=== PATIENT | female | born 1980 | race Hispanic/Latino ===

== ENCOUNTER 2017-09-17 07:50 | Observation (INO) | payer OTHER ==
[2017-09-11 11:11] LABS: Basophils # (Auto) 0.1 K/mm3 (0.0-0.1); Basophils % (Auto) 1.4 % (0.0-1.8); Eosinophils # (Auto) 0.2 K/mm3 (0.0-0.4); Eosinophils % (Auto) 2.6 % (0.0-4.3); Hematocrit 36.8 % (30.3-42.9); Hemoglobin 12.3 gm/dl (10.1-14.3); Lymphocytes # (Auto) 1.8 K/mm3 (1.2-5.4); Lymphocytes % (Auto) 22.5 % (13.4-35.0); Mean Corpuscular HGB Conc 34 % (30-34); Mean Corpuscular Hemoglobin 27 pg (28-32); Mean Corpuscular Volume 80 fl (79-97); Monocytes # (Auto) 0.7 K/mm3 (0.0-0.8); Monocytes % (Auto) 8.8 % (0.0-7.3); Platelet Count 323 K/mm3 (140-440); Red Blood Count 4.59 M/mm3 (3.65-5.03); Red Cell Distribution Width 16.4 % (13.2-15.2)
--- NOTE | 2017-09-11 11:17 | Anesthesia Consultation ---
Anesthesia Consult and Med Hx Date of service: 09/11/17 - Airway Anesthetic Teeth Evaluation: Good, Bridges (upper) ROM Head & Neck: Adequate Mental/Hyoid Distance: Adequate Mallampati Class: Class II Intubation Access Assessment: Probably Good - Pulmonary Exam CTA: Yes - Cardiac Exam Cardiac Exam: RRR - Pre-Operative Health Status ASA Pre-Surgery Classification: ASA2 Proposed Anesthetic Plan: General - Pulmonary Hx Smoking: Yes (Former) - Central Nervous System Hx Back Pain: Yes Hx Psychiatric Problems: No - Hematic Hx Anemia: No - Other Systems Hx Alcohol Use: Yes (occas) Hx Cancer: No - Additional Comments Anesthesia Medical History Comments: pelvic pain, heavy bleeding
--- NOTE | 2017-09-15 11:47 | History and Physical Report ---
History of Present Illness Date of examination: 09/15/17 Date of admission: 09/17/17 Chief complaint: here for surgery History of present illness: History of Present Illness: pt presents for pre-op...................igarcia CC: cramping. History of Present Illness: pt presents c/o cramping off and on, pain with intercourse.....samantha Pt was doing well w/o severe pain until recently. She states the pain did not fully subside but has gotten worse as it was previosly. Pt does have a post fibroid that make having sex painful which her main cocern. She does continue to have painful meses and heavy periods with passing clots. I d/w treatmnt options. she has tried hormonal threapy in the past and this would regulate menses but still would not eliminate painful coitus. Pt desires to have [facility] BS. All risk/benefits/alternatives were d/w pt and questions were addressed and answered. Will con't nsaids for now for pain. Vital Signs: Patient Profile: 36 Years Old Female LMP: 08/11/2017 Height: 62 inches (157.48 cm) Weight: 171 pounds (77.73 kg) BMI: 31.27 BSA: 1.79 BP sittin / 76 (left arm) Vitals Entered By: Nelsy Cheek (September 05, 2017 3:58 PM) Menstrual History: LMP (date): 08/11/2017 Past History : 4 Term Births: 3 Living Children: 3 Para: 3 Spont. 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 of genital herpes: no Hx of STD: HPV Active Medications (reviewed today): NAPROSYN 500 MG ORAL TABLET (NAPROXEN) 1 tab po BID prn pain NEXIUM () TYLENOL () NAPROXEN (PRN PAIN) () Current Allergies (reviewed today): CODEINE (Critical) Past Medical History: Reviewed history from 12/20/2016 and no changes required: Negative Past Medical History Past Surgical History: Reviewed history from 12/20/2016 and no changes required: positive Cholecystectomy [[facility]] Risk Factors: Smoked Tobacco Use: Former smoker Smokeless Tobacco Use: Never Passive smoke exposure: no Drug use: no HIV high-risk behavior: no Alcohol use: yes Exercise: yes Seatbelt use: 100 % Review of Systems General Denies fever, chills, sweats, anorexia, fatigue, weakness, malaise, weight loss and sleep disorder. Denies nausea, vomiting, headache, swelling of legs, abdominal pain, vaginal discharge, vaginal bleeding and contractions. Complains of menorrhagia, pelvic pain, painful periods and painful sex. Denies vaginal discharge, incontinence, dysuria, hematuria, urinary frequency, amenorrhea, abnormal vaginal bleeding, genital sores, decreased libido, urinary urgency, hot flashes, vaginal dryness, vaginal itching and vaginal odor. CV Denies chest pains, palpitations, syncope, dyspnea on exertion, orthopnea, PND and peripheral edema. Resp Denies cough, dyspnea at rest, excessive sputum, hemoptysis, wheezing and pleurisy. GI Denies nausea, vomiting, diarrhea, constipation, change in bowel habits, abdominal pain, melena, hematochezia, jaundice, gas/bloating, indigestion/ heartburn, dysphagia and odynophagia. Endo Denies cold intolerance, heat intolerance, polydipsia, polyphagia, polyuria and unusual weight change. Breast Denies left breast lump, right breast lump, nipple discharge, bloody discharge from nipple, breast pain, abnormal mammogram and breast enlargement. MS Denies back pain, joint pain, joint swelling, muscle cramps, muscle weakness, stiffness, arthritis, sciatica, restless legs, leg pain at night and leg pain with exertion. Derm Denies rash, itching, dryness and suspicious lesions. Neuro Denies paralysis, paresthesias, headache, seizures, tremors, vertigo, transient blindness, frequent falls, frequent headaches and difficulty walking. Psych Denies depression, anxiety, irritability and mood swings. Eyes Denies blurring, diplopia, irritation, discharge, vision loss, eye pain and photophobia. ENT Denies earache, ear discharge, tinnitus, decreased hearing, nasal congestion, nosebleeds, sore throat and hoarseness. Allergy Denies urticaria, allergic rash, hay fever and recurrent infections. Heme Denies abnormal bruising, bleeding and enlarged lymph nodes. 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 History: abnormal PAP smear Family/Genetic History: none Social history: no significant social history, - Obstetrical History : 4 Para: 3 Hx # Term Pregnancies: 3 Spontaneous Abortions: 1 Number of Living Children: 3 Medications and Allergies Allergies Allergy/AdvReac Type Severity Reaction Status Date / Time codeine Allergy Anaphylaxis Verified 09/10/17 09:50 Home Medications Medication Instructions Recorded Confirmed Last Taken Type Esomeprazole Magnesium [Nexium] 40 mg PO DAILY 09/10/17 09/10/17 Unknown History Naproxen [Naprosyn] 500 mg PO DAILY 09/10/17 09/10/17 Unknown History - Vital Signs Vital signs: Vital Signs Temp Pulse Resp BP 98.8 F 60 16 120/84 09/11/17 10:30 09/11/17 10:30 09/11/17 10:30 09/11/17 10:30 Temp Pulse Resp BP Pulse Ox 98.8 F 60 16 120/84 09/11/17 10:30 09/11/17 10:30 09/11/17 10:30 09/11/17 10:30 - Physical Exam Breasts: Positive: deferred Cardiovascular: Normal S1, Normal S2 Lungs: Positive: Clear to auscultation, Normal air movement Abdomen: Positive: normal appearance, soft. Negative: distention, tenderness, guarding Genitourinary (Female): Positive: normal external genitalia, normal perenium, other (previous exam) Vulva: both: normal Vagina: Positive: normal moisture. Negative: discharge Cervix: Positive: other (some tenderness on exam previously). Negative: lesion Uterus: Positive: normal size, other (irregular contour. Post fibroid was palpated). Negative: normal contour Extremities: Positive: normal. Negative: tenderness, edema Deep Tendon Reflex Grade: Normal +2 Results Result Diagrams: 09/11/17 10:30 All other labs normal. Assessment and Plan - Patient Problems (1) Menorrhagia with regular cycle Status: Acute Plan to address problem: pt has tried medical therapy initially with some improvement but with sx returning. She desires definitive treatment in the for of a hyst. All risk, benefits, and alternatives were d/w pt and questions were addressed and answered. Pt given ample time to ask questions and all of which were addressed. Consents signed and placed on chart. -to OR for LAVH with BS (2) Dysmenorrhea Status: Acute Plan to address problem: pt has tried medical therapy initially with some improvement but with sx returning. She desires definitive treatment in the for of a hyst. All risk, benefits, and alternatives were d/w pt and questions were addressed and answered. Pt given ample time to ask questions and all of which were addressed. Consents signed and placed on chart. -to OR for LAVH with BS (3) Painful coitus, female Status: Acute Plan to address problem: -post fibroid continues to make sex painful. -to OR for LAVH with BS (4) Uterine fibroid Status: Acute
[~2017-09-17 07:50] MED LIST: ANCEF/STERILE WATER 2 GM/20 ML 2 GM/20 ML SYRINGE IV SCH
[2017-09-17] MEDS: LACTATED RINGERS 1,000 ML IV SCH ×2 (08:50→20:17)
[2017-09-17] MEDS ORDERED: VERSED IV PRN (09:30)
[2017-09-17] MEDS ORDERED: NEURONTIN PO NR (09:30)
[2017-09-17] MEDS ORDERED: DILAUDID IV SCH (10:00)
[2017-09-17] MEDS ORDERED: PEPCID PO NR (10:00)
--- NOTE | 2017-09-17 10:37 | Event Note ---
Date: 09/17/17 Pt states that she has taken lortab in the past w/o interactions. Spoke with inpt pharm that recommends norco for pain control at this time. Will closely monitor for any interactions.
[2017-09-17] MEDS ORDERED: DECADRON ONE (11:29)
[2017-09-17] MEDS ORDERED: ZEMURON IV ONE (11:29)
[2017-09-17] MEDS ORDERED: XYLOCAINE MPF 2% ONE (11:29)
[2017-09-17] MEDS ORDERED: TORADOL ONE ×2 (11:29→13:19)
[2017-09-17] MEDS ORDERED: SUBLIMAZE ONE (11:29)
[2017-09-17] MEDS ORDERED: DIPRIVAN 10 MG/ML IV ONE (11:29)
[2017-09-17] MEDS ORDERED: ZOFRAN ONE (11:29)
[2017-09-17] MEDS ORDERED: MARCAINE 0.5% 30 ML INFILTRATI ONE (11:30)
[2017-09-17] MEDS ORDERED: METHYLENE BLUE ONE (11:36)
[2017-09-17] MEDS ORDERED: Vasostrict ONE (11:37)
[2017-09-17] MEDS ORDERED: VERSED ONE (11:41)
[2017-09-17] MEDS ORDERED: ROBINUL ONE ×3 (12:23→13:19)
[2017-09-17] MEDS ORDERED: NACL 0.9% 100 ML ONE (12:58)
[2017-09-17] MEDS ORDERED: BLOXIVERZ ONE (13:19)
[2017-09-17] MEDS ORDERED: MARCAINE 0.5% INFILTRATI ONE (13:37)
[2017-09-17] MEDS ORDERED: NACL 0.9% IR ONE (13:37)
[2017-09-17] MEDS ORDERED: Vasostrict IV ONE (13:39)
[2017-09-17] MEDS ORDERED: ZOFRAN IV PRN (14:27)
[2017-09-17] MEDS ORDERED: TYLENOL PO PRN (14:27)
--- NOTE | 2017-09-17 14:27 | Operative Report ---
Operative Report Operative Report: Date of procedure: 09/17/2017 Pre-operative diagnosis: Menorrhagia Dyspareunia Uterine fibroid Post-operative diagnosis: Same Procedure name(s): Laparoscopic assisted vaginal hysterectomy Bilateral salpingectomy Surgeon: Chanel Griffiths MD Project Developer: Dr. Idalia Ramirez Anesthesia: Gen. endotracheal anesthesia EBL: 100 mL Urine output: 200 mL of clear urine out at the end of procedure Fluids: 1300 mL Findings: Grossly normal fallopian tubes and ovaries bilaterally Enlarged globular uterus Posterior uterine fibroid Indications: Patient with long history of menorrhagia and dyspareunia. Patient diagnosed with a posterior fundal uterine fibroid that caused of complaint with sexual intercourse. Patient did have to further relieve using hormonal treatment for the menorrhagia. However, the symptoms returned after a few months. Patient desired definitive therapy in the form of hysterectomy. All risks benefits and alternatives were discussed with the patient. Risks benefits and alternatives of removing fallopian tubes bilaterally were also discussed with the patient. Patient desired removal of the fallopian tubes bilaterally. Procedure: Patient was taken to the operating room where she was placed under general endotracheal anesthesia. She was then prepped and draped in sterile fashion. It was at this point that the large Winkapp care uterine manipulator was placed inside of the uterus after the uterus was sounded to approximately 10 cm. Fernandez catheter was also placed at this time. Attention was then turned to the umbilicus in which a supraumbilical incision was made. Under direct visualization the 5 mm trocar was placed inside the peritoneum the peritoneum was then insufflated. As at this point that the laparoscopic portion of the procedure was performed. 2 lateral 5 mm ports were also placed under direct visualization. Using the tripolar instrument the upper pedicles were cauterized and transected to the including round ligament with excellent hemostasis noted bilaterally. Attention was then turned vaginally. A weighted speculum was placed into the vagina and the cervix was grasped with a single-tooth tenaculum 2. The cervix was then injected circumferentially with Pitressin. The cervix was then circumferentially incised with the scalpel and the bladder dissected off of the pubovesical cervical fascia anteriorly with a sponge stick and Metzenbaum scissors. The same procedure was performed posteriorly and the posterior cul-de-sac was entered into sharply without difficulty. At this point a Meliza Clamp was placed over the uterosacral ligaments on either side. These were then transected and suture ligated with 0 Vicryl. Hemostasis was assured. The cardinal ligaments were then clamped on both sides transected and suture ligated in similar fashion. The uterine arteries were then serially clamped with Meliza clamps transected and suture ligated on both sides. Excellent hemostasis was visualized. After it was clear that the uterus had been completely from all pedicles the uterus was removed vaginally intact with cervix intact. The vaginal cuff angles were closed with figure of 8 stitches of 0 Vicryl on both sides. The peritoneum was incorporated in the stitching of the vaginal cuff. A series of interrupted figure of 8 sutures using 0 Vicryl were used to close the entire vaginal cuff. Excellent hemostasis was noted. The vagina was then irrigated copiously. Attention was then turned laparoscopically at which time Interceed was placed along the vaginal cuff and both ovaries bilaterally laparoscopically Again all pedicles were noted to be hemostatic. The ureters were identified bilaterally with peristalsis noted bilaterally. All instruments were then removed from the abdomen and the vagina. All gas was released from the abdomen. The abdominal incisions were closed using 4-0 Monocryl. All of the abdominal incisions were injected with Marcaine without epi. Patient tolerated the procedure well sponge lap and needle counts were all correct 3 the patient was taken to the recovery room awake and in stable condition.
[2017-09-17] MEDS ORDERED: DILAUDID ONE (14:59)
[2017-09-17] MEDS: DILAUDID IV PRN ×3 (15:09→16:29)
[2017-09-17] MEDS: TORADOL IV SCH ×2 (15:09→21:50)
[2017-09-17] MEDS: NORCO 5/325 PO PRN ×2 (18:49→23:10)
[2017-09-17] MEDS: ANCEF/NS 1 GM/50 ML 1 GM/50 ML BAG IV SCH (20:18)
[2017-09-18] MEDS: TORADOL IV SCH ×2 (03:15→09:46)
[2017-09-18] MEDS: LACTATED RINGERS 1,000 ML IV SCH (03:19)
[2017-09-18] MEDS: ANCEF/NS 1 GM/50 ML 1 GM/50 ML BAG IV SCH (03:24)
[2017-09-18] MEDS: NORCO 5/325 PO PRN ×2 (05:11→12:34)
[2017-09-18 08:35] LABS: Hematocrit 34.7 % (30.3-42.9); Hemoglobin 11.5 gm/dl (10.1-14.3)
--- NOTE | 2017-09-18 09:59 | Progress Note ---
Assessment and Plan - Patient Problems (1) Menorrhagia with regular cycle Current Visit: No Status: Acute (2) Dysmenorrhea Current Visit: No Status: Acute (3) Painful coitus, female Current Visit: No Status: Acute (4) Uterine fibroid Current Visit: No Status: Acute (5) Status post laparoscopic assisted vaginal hysterectomy (LAVH) Current Visit: Yes Status: Acute Plan to address problem: -con't post op care -d/c home this pm if remains AFVSS and tolerates regular Subjective - Subjective Date of service: 09/18/17 Principal diagnosis: POD #1s/p LAVH WITH BS Interval history: Pt doing well tolerating a clear diet with the regular diet at bedside this am. Pt states pain is well controlled this am. Pt still has not had a spontaneous void as cath just removed. Patient reports: appetite normal, voiding normally, pain well controlled, ambulating normally, no dizzy ambulation Objective - Vital Signs Latest vital signs: Vital Signs Temp Pulse Resp BP BP Pulse Ox 09/18/17 05:11 20 09/18/17 04:10 98.6 F 88 18 111/66 98 09/18/17 03:15 18 09/18/17 00:00 98.0 F 93 H 18 112/69 96 09/17/17 23:10 18 09/17/17 21:50 20 09/17/17 20:05 99.1 F 90 18 133/86 98 09/17/17 16:00 97.6 F 84 16 122/77 97 09/17/17 15:30 65 12 111/66 98 09/17/17 15:15 65 13 104/57 93 09/17/17 15:00 65 16 106/58 94 09/17/17 14:45 73 16 100/47 95 09/17/17 14:40 75 15 106/53 95 09/17/17 14:35 74 15 103/57 100 09/17/17 14:28 97.7 F 73 20 106/56 100 09/17/17 09:55 16 Intake and Output 09/17/17 09/18/17 09/18/17 22:59 06:59 14:59 Intake Total 1175 1359.167 Output Total 1700 Balance 1175 -340.833 Intake: IV 1175 879.167 ANCEF/NS 1 GM/50 ML 1 gm 50 In 50 ml @ 100 mls/hr IV Q8H KIERRA Rx#:[id number] Lactated Ringers 1,000 ml 1000 879.167 @ 125 mls/hr IV DIRECT KIERRA Rx#:[id number] Right Hand 125 Oral 480 Output: Urine 1700 Void 1700 Other: Total, Intake Amount 240 Total, Output Amount 900 - Exam Cardiovascular: Present: Normal S1, Normal S2 Lungs: Present: Clear to auscultation, Normal air movement Abdomen: Present: normal appearance, soft. Absent: distention, tenderness, guarding Extremities: Absent: tenderness, edema Deep Tendon Reflex Grade: Normal +2 Incision: Present: normal, dry, intact
--- NOTE | 2017-09-18 10:02 | Discharge Summary ---
Providers - Providers Date of Admission: 09/17/17 14:27 Date of discharge: 09/18/17 Attending physician: CHRIS FORDE Primary care physician: SHIP WASHER Hospitalization Reason for admission: other (LAVH WITH BS) Procedure: other (LAVH WITH BS) Procedure details: See operative report Incision: normal, dry, intact Hospital course: Patient was admitted to the hospital for laparoscopic-assisted vaginal hysterectomy with bilateral salpingectomy. Patient's postoperative course was not complicated. Patient received routine post operative care and was discharged home on postoperative day #1 when she was able to ambulate without assistance, urinates spontaneously, and tolerating regular diet. Condition at discharge: Good Disposition: DC-01 TO HOME OR SELFCARE - Discharge Diagnoses (1) Menorrhagia with regular cycle Status: Acute (2) Dysmenorrhea Status: Acute (3) Painful coitus, female Status: Acute (4) Uterine fibroid Status: Acute (5) Status post laparoscopic assisted vaginal hysterectomy (LAVH) Status: Acute Plan - Discharge Medications Prescriptions: HYDROcodone/APAP 5-325 [Hancock 5/325] 1 each PO Q4HR PRN #30 tablet PRN Reason: Pain Naproxen [Naprosyn] 500 mg PO BID #60 tablet - Provider Discharge Summary Activity: routine, no sex for 6 weeks, no heavy lifting 4 weeks Diet: routine Instructions: routine Additional instructions: [] Smoking cessation referral if applicable(refer to patient education folder for contact #) [] Refer to [facility] Booklet Call your doctor immediately for: * Fever > 100.5 * Heavy vaginal bleeding ( >1 pad per hour) * Severe persistent headache * Shortness of breath * Reddened, hot, painful area to leg or breast * Drainage or odor from incision. * Keep incision clean and dry at all times and follow doctor's instructions regarding bathing/showering - Follow up plan Follow up: PRIMARY CARE, [Primary Care Provider] - 7 Days
[2017-09-18 13:42] VITALS: BP 110/62
== END 2017-09-18 13:40 | disposition home or self-care (01) ==
LOC: OR 07:50 → OB 14:27
PROVIDERS: ADMIT Obstetrics & Gynecology; ATTEND Obstetrics & Gynecology
DX: D25.9 Leiomyoma of uterus, unspecified (principal); N92.0 Excessive and frequent menstruation with regular cycle; N94.6 Dysmenorrhea, unspecified; Z87.891 Personal history of nicotine dependence
CPT/HCPCS: 36415; 58552; 84703; 85014; 85018; 85025; 86850; 86900; 86901; 88307; 96365; 96375; 96376; C1765; G0378; J0690; J1100; J1170; J1885; J2250; J2405; J2704; J2710; J3010; J7120; Q9968; 88302